=== PATIENT | female | born 1985 | race Hispanic/Latino ===

== ENCOUNTER 2022-09-14 19:00 | Emergency (ER) | payer OTHER, SELFPAY ==
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
[2022-09-14 19:28] VITALS: BP 141/101; PULSE 83; RESP 14; TEMP 36.8; O2SAT 100
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
== END 2022-09-14 21:42 | disposition home or self-care (01) ==
PROVIDERS: Emergency Provider Nurse Practitioner Family
DX: S13.4XXA Sprain of ligaments of cervical spine, initial encounter (principal); M79.661 Pain in right lower leg; V53.6XXA Passenger in pick-up truck or van injured in collision with car, pick-up truck or van in traffic accident, initial encounter
CPT/HCPCS: 72100; 73560; 81025; 99284